=== PATIENT | female | born 2000 | race Caucasian/White ===

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

== ENCOUNTER 2023-07-18 15:45 | Outpatient (CLI) | payer OTHER ==
[2023-07-18] MEDS: BETAMET ACET-BETAMETH SOD PHOS 6 MG/ML MDV IM SCH (15:59)
== END 2023-07-18 16:05 | disposition home or self-care (01) ==
LOC: FBPOP 15:45
PROVIDERS: ATTEND Obstetrics & Gynecology
DX: Z29.89 Encounter for other specified prophylactic measures (principal); Z88.0 Allergy status to penicillin
CPT/HCPCS: 96372; J0702

== ENCOUNTER 2023-07-19 16:48 | Outpatient (CLI) | payer OTHER ==
[2023-07-19] MEDS: BETAMET ACET-BETAMETH SOD PHOS 6 MG/ML MDV IM SCH (16:58)
== END 2023-07-19 17:00 | disposition home or self-care (01) ==
LOC: FBPOP 16:48
PROVIDERS: ATTEND Obstetrics & Gynecology
DX: Z29.89 Encounter for other specified prophylactic measures (principal); Z88.0 Allergy status to penicillin
CPT/HCPCS: 96372; J0702